=== PATIENT | male | born 1975 | race Caucasian/White ===

== ENCOUNTER 2017-03-07 21:57 | Emergency (ER) | payer OTHER ==
[~2017-03-07] VITALS: Ht 170.2 cm; Wt 74.5 kg
[2017-03-07] MEDS ORDERED: NS 1,000 ML IV SCH (22:28)
[2017-03-07] MEDS ORDERED: MORPHINE 4 MG/ML 1ML SYRINGE IV ONE (22:30)
[2017-03-07 22:46] LABS: BASO # 0.1 K/mm3 (0.0-0.2); BASO % 0.8 % (0.0-1.0); EOS # 0.3 K/mm3 (0.0-0.50); LARGE UNSTAINED CELL # 0.3 K/mm3 (0.0-0.4); LARGE UNSTAINED CELL % 2.1 % (0.0-4.0); LYMPH # 3.9 K/mm3 (1.5-4.5); LYMPH % 29.7 % (24.0-44.0); MEAN CORPUSCULAR HEMOGLOBIN 34.1 pg (27.0-33.0); MEAN CORPUSCULAR HGB CONC 35.3 g/dl (32.0-36.5); MEAN CORPUSCULAR VOLUME 96.7 fl (80.0-96.0); MONO # 0.9 K/mm3 (0.0-0.8); MONO % 6.7 % (0.0-5.0); NEUTROPHILS # 7.7 K/mm3 (1.8-7.7); NEUTROPHILS % 58.8 % (36.0-66.0); PLATELET COUNT, AUTOMATED 239 k/mm3 (150-450); RED CELL DISTRIBUTION WIDTH 12.3 % (11.5-14.5)
[2017-03-07 22:47] LABS: INR 0.85
[2017-03-07 22:56] LABS: ALBUMIN 4.1 GM/DL (3.2-5.2); ALBUMIN/GLOBULIN RATIO 1.21 (1.00-1.93); ALKALINE PHOSPHATASE 91 U/L (45-117); ALT/SGPT 52 U/L (12-78); ANION GAP 9 MEQ/L (8-16); AST/SGOT 52 U/L (15-37); BILIRUBIN,DIRECT 0.2 MG/DL (0.0-0.2); BILIRUBIN,TOTAL 0.7 MG/DL (0.2-1.0); BLOOD UREA NITROGEN 9 MG/DL (7-18); CALCIUM LEVEL 8.6 MG/DL (8.5-10.1); CARBON DIOXIDE LEVEL 27 MEQ/L (21-32); CHLORIDE LEVEL 107 MEQ/L (98-107); CREATININE FOR GFR 1.28 MG/DL (0.70-1.30); GLOMERULAR FILTRATION RATE > 60.0 (>60); GLUCOSE, FASTING 80 MG/DL (70-105); POTASSIUM SERUM 3.7 MEQ/L (3.5-5.1); SODIUM LEVEL 143 MEQ/L (136-145); TOTAL PROTEIN 7.5 GM/DL (6.4-8.2)
[2017-03-07] MEDS ORDERED: ISOVUE-370 76% 100ML VIAL (Q9967) As Ordered ONE (22:58)
--- NOTE | 2017-03-07 23:40 | REPUSA ---
CT of the chest Clinical statement: trauma. Technique: Multiple axial CT images were obtained from the thoracic inlet through the upper abdomen a fter a bolus administration of nonionic intravenous contrast. Coronal and sagittal reconstructions we re also obtained. No comparison is available. Findings: The pulmonary arteries are well-opacified with contrast, with no intraluminal filling defec ts to suggest embolism. The thoracic aorta is unremarkable. Thyroid gland is within normal limits. Th ere is no thoracic lymphadenopathy. There are no pericardial or pleural effusions. The lungs are james r. There is a benign calcified granuloma in the posterior left lower lobe. Limited imaging of the upp er abdomen is unremarkable. There are no suspicious osseous lesions. Impression: Unremarkable CT examination of the chest. No evidence of pulmonary embolism.
--- NOTE | 2017-03-07 23:40 | REPUSA ---
CT of the head Clinical history: trauma. Comparison: 05/02/2012. Technique: Multiple axial CT images were obtained through the head without administration of contrast . Findings: The ventricles and sulci are symmetric bilaterally. There is no evidence of acute hemorrhag e or infarct. There is no midline shift, mass effect, or extra-axial fluid collection. The osseous st ructures are unremarkable. The visualized paranasal sinuses and mastoid air cells are clear. Impression: Negative study.
--- NOTE | 2017-03-07 23:50 | REPUSA ---
CT of the abdomen and pelvis with contrast Clinical statement: trauma. Technique: Multiple axial CT images were obtained from the base of the lungs through the floor of the pelvis utilizing 5 mm axial slices after administration of nonionic intravenous contrast. Coronal an d sagittal reconstructions were also obtained. No comparison is available. Findings: Chest: The visualized lung bases are clear. Abdomen: The spleen, pancreas, kidneys, gallbladder, and adrenal glands are unremarkable. There is di ffuse low attenuation of the hepatic parenchyma. The hepatic and portal veins are patent. The aorta i s within normal limits. There is no evidence of abdominal lymphadenopathy or ascites. Pelvis: The bowel is unremarkable, with no obstructive or inflammatory changes. The urinary bladder i s distended, but otherwise within normal limits. The other pelvic structures appear grossly intact. T here is no evidence of pelvic lymphadenopathy or ascites. Bones: There are no suspicious osseous abnormalities seen. Impression: Unremarkable CT examination of the abdomen and pelvis. No acute traumatic injury apprecia jose. Fatty infiltration of the liver.
--- NOTE | 2017-03-07 23:50 | REPUSA ---
CT of the cervical spine Clinical history: Pain. Trauma. Technique: Multiple axial CT images were obtained through the cervical spine without administration o f contrast. Coronal and sagittal 3-D reconstructed images were also obtained. Comparison: None. Findings: The cervical vertebral bodies are in satisfactory positioning and alignment. No fractures or dislocat ions are demonstrated. The odontoid process is intact. Intervertebral disc spaces are well-maintained . There is no evidence of facet subluxation. The neural foramen appear grossly patent. The cervical c ranial junction is intact. The cervical spinal canal demonstrates normal caliber and contour without evidence of spinal stenosis. The surrounding soft tissues are within normal limits. Impression: Unremarkable CT examination of the cervical spine.
--- NOTE | 2017-03-08 01:02 | REP ---
Clinical: Trauma. Technique: AP and lateral views of the left forearm. Findings: No acute fracture or dislocation. Skeletal structures, joint spaces, and surrounding soft tissues are normal. No subcutaneous emphysema or radiodense foreign body. Impression: No acute fracture or dislocation. Signed by Jong Jauregui MD 03/08/2017 12:53 A
--- NOTE | 2017-03-08 01:02 | REP ---
Clinical: Trauma. Technique: AP and lateral views of the left humerus. Findings: Acute fracture dislocation. Skeletal structures, joint spaces, and surrounding soft tissues are normal. No subcutaneous emphysema or radiodense foreign body. Impression: No acute fracture or dislocation. Signed by Jong Jauregui MD 03/08/2017 12:54 A
[2017-03-08 02:15] VITALS: BP 121/62
--- NOTE | 2017-03-08 08:04 | ECGEPIP ---
Stationary ECG Study 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
== END 2017-03-08 02:44 | disposition left against medical advice (07) ==
LOC: M ED 21:57
DX: F10.129 Alcohol abuse with intoxication, unspecified (principal); Z72.0 Tobacco use; W13.2XXA Fall from, out of or through roof, initial encounter; Y92.099 Unspecified place in other non-institutional residence as the place of occurrence of the external cause; Y93.89 Activity, other specified; Y99.9 Unspecified external cause status
CPT/HCPCS: 70450; 71260; 72125; 73060; 73090; 74177; 80048; 80076; 80320; 82550; 82553; 85025; 85610; 85730; 93000; 93041; 94760; 96374; 99285; Q9967

== ENCOUNTER 2017-05-16 19:58 | Emergency (ER) | payer OTHER ==
[~2017-05-16] VITALS: Ht 167.6 cm; Wt 74.1 kg
[2017-05-16] MEDS ORDERED: ISOVUE-370 76% 100ML VIAL (Q9967) As Ordered ONE (23:44)
[2017-05-16] MEDS ORDERED: methylPREDNISolone INJ 125 MG/2 ML VIAL (J2930) IV ONE (23:45)
[2017-05-16] MEDS ORDERED: IPRATROPIUM 0.5MG/ALBUTEROL 2.5MG INH SOL UD 3ML (DUONEB)(J7620) NEB ONE (23:45)
[2017-05-17 00:51] LABS: BASO # 0.1 10^3/uL (0.0-0.2); BASO % 1.1 % (0.0-1.0); EOS # 0.2 10^3/uL (0.0-0.50); EOS % 2.3 % (0.0-3.0); IMMATURE GRANULOCYTE % 0.3 % (0-0); LYMPH # 3.5 10^3/uL (1.5-4.5); LYMPH % 37.2 % (24.0-44.0); MEAN CORPUSCULAR HEMOGLOBIN 33.5 pg (27.0-33.0); MEAN CORPUSCULAR HGB CONC 34.9 g/dl (32.0-36.5); MEAN CORPUSCULAR VOLUME 95.9 fl (80.0-96.0); MONO # 0.9 10^3/uL (0.0-0.8); MONO % 9.5 % (0.0-5.0); NEUTROPHILS # 4.7 10^3/uL (1.8-7.7); NEUTROPHILS % 49.6 % (36.0-66.0); PLATELET COUNT, AUTOMATED 227 10^3/uL (150-450); RED CELL DISTRIBUTION WIDTH 12.4 % (11.5-14.5); WHITE BLOOD COUNT 9.5 10^3/uL (4.0-10.0)
[2017-05-17 01:16] LABS: ALBUMIN 3.7 GM/DL (3.2-5.2); ALBUMIN/GLOBULIN RATIO 1.16 (1.00-1.93); ALKALINE PHOSPHATASE 88 U/L (45-117); ALT/SGPT 74 U/L (12-78); ANION GAP 12 MEQ/L (8-16); AST/SGOT 52 U/L (7-37); BILIRUBIN,DIRECT 0.1 MG/DL (0.0-0.2); BILIRUBIN,TOTAL 0.5 MG/DL (0.2-1.0); BLOOD UREA NITROGEN 15 MG/DL (7-18); CALCIUM LEVEL 8.2 MG/DL (8.5-10.1); CARBON DIOXIDE LEVEL 21 MEQ/L (21-32); CHLORIDE LEVEL 106 MEQ/L (98-107); CREATININE FOR GFR 1.21 MG/DL (0.70-1.30); GLOMERULAR FILTRATION RATE > 60.0 (>60); GLUCOSE, FASTING 84 MG/DL (70-105); POTASSIUM SERUM 3.8 MEQ/L (3.5-5.1); SODIUM LEVEL 139 MEQ/L (136-145); TOTAL PROTEIN 6.9 GM/DL (6.4-8.2)
--- NOTE | 2017-05-17 02:50 | REPUSA ---
CLINICAL HISTORY: Abdominal pain. TECHNIQUE: Multiple axial and coronal CT images were obtained through the abdomen and pelvis after ad ministration of oral and intravenous contrast material. COMMENTS: Comparison to prior exam on 03/07/2017. Interval appearance of diffuse thickening of the wall of the bladder. Diffusely thickened colon. Fluid filled small bowels. The liver is of uniform attenuation without mass or defect. There is no intra or extrahepatic biliary ductal dilatation. The spleen is normal. The gallbladder is within normal limits. The pancreas is of normal contour and attenuation characteristics. There is no evidence of adrenal mass. Both kidneys demonstrate prompt and equal nephrograms. The kidneys are normal in size, shape and conf iguration. There is no evidence of renal or ureteral mass. No renal or ureteral calculi are identifie d. There is no hydroureter or hydronephrosis. No evidence for appendicitis. There is no bowel wall thickening. No evidence for small or large bowel obstruction. There is no evidence of abdominal ascites or lymphadenopathy. There is no evidence of intrinsic or extrinsic bladder mass. There is no pelvic ascites or lymphadeno jannie. Images of the lung bases show no evidence of pleural or parenchymal mass. There are no pleural effusi ons. The bony structures are free of lytic or blastic lesions. IMPRESSION: Diffusely thickened bladder suggestive of cystitis. Mild enterocolitis. Not present on prior exam. Thank you for your kind referral of this patient.
[2017-05-17] MEDS ORDERED: PRED20TA PO (03:02)
[2017-05-17] MEDS ORDERED: ALBUTEROL 90 MCG/ACT 8GM HFA INHALER INH ONE (03:15)
[2017-05-17 03:16] VITALS: BP 138/76
--- NOTE | 2017-05-17 07:57 | REP ---
Clinical: Cough and dyspnea . Comparison: 10/29/2015 . Technique: PA and lateral. Findings: The mediastinum and cardiac silhouette are normal. The lung chen are clear and without acute consolidation, effusion, or pneumothorax. Stable benign calcified granuloma in the periphery of the left lung zone with associated calcified lymph nodes. The skeletal structures are intact and normal. Impression: 1. No acute cardiopulmonary process. 2. Prior granulomas disease. Signed by Jong Jauregui MD 05/17/2017 07:49 A
--- NOTE | 2017-05-17 09:18 | ECGEPIP ---
Stationary ECG Study 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
== END 2017-05-17 03:43 | disposition home or self-care (01) ==
LOC: M ED 19:58
DX: J45.901 Unspecified asthma with (acute) exacerbation (principal); R10.9 Unspecified abdominal pain; F17.200 Nicotine dependence, unspecified, uncomplicated; Z88.0 Allergy status to penicillin
CPT/HCPCS: 71020; 74177; 80048; 80076; 83605; 83880; 85025; 87804; 93000; 93041; 94640; 94760; 96374; 99285; J2930; Q9967

== ENCOUNTER → 2017-05-21 | Outpatient (REF) | payer OTHER ==
[~2017-05-21] MED LIST: PRED20TA PO
== END ==
LOC: M SFHCPLAZ 11:21
PROVIDERS: ATTEND Family Medicine
DX: Z87.09 Personal history of other diseases of the respiratory system (principal); R10.13 Epigastric pain

== ENCOUNTER → 2017-05-21 | Outpatient (REF) | payer OTHER | LOC: M SFHCPLAZ 13:34 | PROVIDERS: ATTEND Student in an Organized Health Care Education/Training Program | DX: R10.13 Epigastric pain (principal) ==

== ENCOUNTER 2017-07-12 13:31 | Outpatient (CLI) | payer OTHER ==
[2017-07-12] MEDS ORDERED: METHACHOLINE KIT (J7674) INH (14:00)
[2017-07-22] MEDS ORDERED: METHACHOLINE KIT (J7674) INH (07:00)
[2017-08-19] MEDS ORDERED: METHACHOLINE KIT (J7674) INH (10:00)
== END 2017-08-19 ==
LOC: M CARPUL 08-19 09:34
DX: J45.50 Severe persistent asthma, uncomplicated (principal)
CPT/HCPCS: J7674

== ENCOUNTER 2017-07-22 07:49 | Outpatient (CLI) | payer OTHER | END 2017-08-19 | LOC: M SLEEP 07:49 | DX: I10 Essential (primary) hypertension (principal); E66.3 Overweight; R56.9 Unspecified convulsions | CPT/HCPCS: 88108 ==

== ENCOUNTER → 2017-07-22 | Outpatient (CLI) | payer OTHER | LOC: M RAD 11:22 | DX: M54.5 Low back pain (principal); R05 Cough | CPT/HCPCS: 71046 ==

== ENCOUNTER → 2017-08-09 | Outpatient (REF) | payer OTHER | LOC: M LAB REF 09:26 | DX: J11.1 Influenza due to unidentified influenza virus with other respiratory manifestations (principal) | CPT/HCPCS: 87633 ==

== ENCOUNTER → 2017-08-11 | Outpatient (CLI) | payer OTHER ==
[2017-08-11 12:09] LABS: BASO % 0.6 % (0.0-1.0); EOS # 0.1 10^3/uL (0.0-0.50); EOS % 1.5 % (0.0-3.0); HEMATOCRIT 45.6 % (42.0-52.0); HEMOGLOBIN 15.8 g/dl (14.0-18.0); IMMATURE GRANULOCYTE % 0.3 % (0-3.0); LYMPH # 1.7 10^3/uL (1.5-4.5); LYMPH % 23.5 % (24.0-44.0); MEAN CORPUSCULAR HEMOGLOBIN 33.3 pg (27.0-33.0); MEAN CORPUSCULAR HGB CONC 34.6 g/dl (32.0-36.5); MEAN CORPUSCULAR VOLUME 96.2 fl (80.0-96.0); MONO # 0.7 10^3/uL (0.0-0.8); MONO % 10.3 % (0.0-5.0); NEUTROPHILS # 4.6 10^3/uL (1.8-7.7); NEUTROPHILS % 63.8 % (36.0-66.0); PLATELET COUNT, AUTOMATED 181 10^3/uL (150-450); RED BLOOD COUNT 4.74 10^6/uL (4.30-6.10); RED CELL DISTRIBUTION WIDTH 12.4 % (11.5-14.5); WHITE BLOOD COUNT 7.2 10^3/uL (4.0-10.0)
[2017-08-11 12:32] LABS: ANION GAP 6 MEQ/L (8-16); BLOOD UREA NITROGEN 9 MG/DL (7-18); CALCIUM LEVEL 9.1 MG/DL (8.5-10.1); CARBON DIOXIDE LEVEL 30 MEQ/L (21-32); CHLORIDE LEVEL 103 MEQ/L (98-107); CREATININE FOR GFR 1.04 MG/DL (0.70-1.30); GLOMERULAR FILTRATION RATE > 60.0 (>60); GLUCOSE, FASTING 95 MG/DL (70-100); LIPASE 132 U/L (73-393); POTASSIUM SERUM 4.2 MEQ/L (3.5-5.1); SODIUM LEVEL 139 MEQ/L (136-145)
== END ==
LOC: M LAB 11:07
DX: R06.02 Shortness of breath (principal); J06.9 Acute upper respiratory infection, unspecified; K52.9 Noninfective gastroenteritis and colitis, unspecified; R10.13 Epigastric pain; J98.4 Other disorders of lung
CPT/HCPCS: 71046

== ENCOUNTER 2018-08-13 00:53 | Emergency (ER) | payer OTHER ==
[~2018-08-13] VITALS: Ht 170.2 cm; Wt 75.0 kg
[2018-08-13 00:53] VITALS: BP 135/93
--- NOTE | 2018-08-13 08:01 | REP ---
Right shoulder single AP view : There is no fracture or dislocation. Mineralization and joint spaces are normal. There are no calcifications or foreign bodies. Impression: Negative right shoulder single view . Electronically Signed by Aneesh Wood MD 08/13/2018 07:53 A
--- NOTE | 2018-08-13 08:02 | REP ---
Right wrist four views : There is no fracture or dislocation. Mineralization and joint spaces are normal. There are no calcifications or foreign bodies. Impression: Negative right wrist . Electronically Signed by Aneesh Wood MD 08/13/2018 07:55 A
--- NOTE | 2018-08-13 08:02 | REP ---
Right forearm two views : There is no fracture or dislocation. Mineralization and joint spaces are normal. There are no calcifications or foreign bodies. Impression: Negative right forearm . Electronically Signed by Aneesh Wood MD 08/13/2018 07:54 A
--- NOTE | 2018-08-13 08:02 | REP ---
Right humerus two views : There is no fracture or dislocation. Mineralization and joint spaces are normal. There are no calcifications or foreign bodies. Impression: Negative right humerus . Electronically Signed by Aneesh Wood MD 08/13/2018 07:54 A
== END 2018-08-13 02:14 | disposition home or self-care (01) ==
LOC: M ED 00:53
DX: F10.129 Alcohol abuse with intoxication, unspecified (principal); S43.51XA Sprain of right acromioclavicular joint, initial encounter; W23.0XXA Caught, crushed, jammed, or pinched between moving objects, initial encounter; Y92.9 Unspecified place or not applicable; Y93.9 Activity, unspecified; Y99.9 Unspecified external cause status; Z88.0 Allergy status to penicillin

== ENCOUNTER 2018-09-16 18:01 | Emergency (ER) | payer OTHER ==
[~2018-09-16] VITALS: Ht 170.2 cm; Wt 71.4 kg
[2018-09-16] MEDS ORDERED: NS 1,000 ML IV ONE (18:30)
[2018-09-16 18:54] LABS: BASO # 0.1 10^3/uL (0.0-0.2); EOS # 0.2 10^3/uL (0.0-0.50); EOS % 1.8 % (0.0-3.0); HEMATOCRIT 46.6 % (42.0-52.0); HEMOGLOBIN 16.1 g/dl (13.5-17.5); LYMPH # 4.1 10^3/uL (1.5-4.5); MEAN CORPUSCULAR HEMOGLOBIN 34.2 pg (27.0-33.0); MEAN CORPUSCULAR HGB CONC 34.5 g/dl (32.0-36.5); MEAN CORPUSCULAR VOLUME 98.9 fl (80.0-96.0); MONO # 0.6 10^3/uL (0.0-0.8); MONO % 6.6 % (0.0-5.0); NEUTROPHILS # 4.1 10^3/uL (1.8-7.7); NEUTROPHILS % 45.3 % (36.0-66.0); PLATELET COUNT, AUTOMATED 198 10^3/uL (150-450); RED BLOOD COUNT 4.71 10^6/uL (4.30-6.10); WHITE BLOOD COUNT 9.1 10^3/uL (4.0-10.0)
[2018-09-16] MEDS ORDERED: diphenhydrAMINE INJ 50MG/ML VIAL (J1200) IM ONE (19:00)
[2018-09-16] MEDS ORDERED: HALOPERIDOL 5 MG/ML VIAL (J1630) IM ONE (19:00)
[2018-09-16] MEDS ORDERED: LORazepam 2 MG/ML VIAL (J2060) IM ONE (19:00)
[2018-09-16 19:09] LABS: ACETAMINOPHEN LEVEL < 2.0 UG/ML (10.0-30.0); ALBUMIN 4.1 GM/DL (3.2-5.2); ALT/SGPT 84 U/L (12-78); BILIRUBIN,DIRECT 0.1 MG/DL (0.0-0.2); BILIRUBIN,TOTAL 0.3 MG/DL (0.2-1.0); BLOOD UREA NITROGEN 9 MG/DL (7-18); CALCIUM LEVEL 8.4 MG/DL (8.5-10.1); CARBON DIOXIDE LEVEL 23 MEQ/L (21-32); CHLORIDE LEVEL 108 MEQ/L (98-107); CPK CREATINE PHOSPHOKINASE 115 U/L (39-308); CREATININE FOR GFR 1.08 MG/DL (0.70-1.30); ETHYL ALCOHOL (ETHANOL) 0.318 % (0.000-0.010); GLOMERULAR FILTRATION RATE > 60.0 (>60); GLUCOSE, FASTING 87 MG/DL (70-100); LIPASE 308 U/L (73-393); POTASSIUM SERUM 4.1 MEQ/L (3.5-5.1); SALICYLATE LEVEL 5.2 MG/DL (5.0-30.0); SODIUM LEVEL 143 MEQ/L (136-145); TOTAL PROTEIN 7.5 GM/DL (6.4-8.2)
[2018-09-16 21:27] LABS: AMPHETAMINES LEVEL URINE NEGATIVE (NEGATIVE); BARBITURATES URINE NEGATIVE (NEGATIVE); BENZODIAZEPINES URINE NEGATIVE (NEGATIVE); CANNABINOIDS URINE NEGATIVE (NEGATIVE); COCAINE METABOLITE URINE NEGATIVE (NEGATIVE); METHADONE URINE NEGATIVE (NEGATIVE); OPIATES URINE NEGATIVE (NEGATIVE); PHENCYCLIDINE URINE NEGATIVE (NEGATIVE)
[2018-09-17 01:26] VITALS: BP 129/73
--- NOTE | 2018-09-17 09:29 | ECGEPIP ---
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
== END 2018-09-17 01:29 | disposition home or self-care (01) ==
LOC: M ED 18:01
DX: F10.129 Alcohol abuse with intoxication, unspecified (principal); I45.19 Other right bundle-branch block; I51.9 Heart disease, unspecified; F12.10 Cannabis abuse, uncomplicated; Z72.0 Tobacco use; Z88.0 Allergy status to penicillin
CPT/HCPCS: 80048; 80076; 80307; 82550; 83605; 83690; 84443; 85025; 93005; 93041; 94760; 96372; 99285; G0480; J1200; J1630; J2060

== ENCOUNTER 2018-10-12 09:50 | Inpatient (IN) | payer OTHER ==
[~2018-10-12] VITALS: Ht 170.2 cm; Wt 69.5 kg
[2018-10-12] MEDS ORDERED: INCR1INH INH (09:57)
[2018-10-12] MEDS ORDERED: VITA500045 PO (09:57)
[2018-10-12] MEDS ORDERED: VENTAER INH (09:57)
[2018-10-12] MEDS ORDERED: MONT10TA2 (09:57)
[2018-10-12] MEDS ORDERED: ALBU8.5H (09:57)
[2018-10-12] MEDS ORDERED: BREO1INH3 INH (09:57)
[2018-10-12] MEDS ORDERED: CEFD1CAP8 PO (09:57)
[2018-10-12] MEDS ORDERED: KETOROLAC 30 MG/ML VIAL (J1885) IV ONE (10:30)
[2018-10-12] MEDS ORDERED: NS 1,000 ML IV ONE ×2 (10:30→13:45)
[2018-10-12] MEDS ORDERED: LORazepam 2 MG/ML VIAL (J2060) IV STA (10:33)
[2018-10-12 11:02] LABS: BASO % 0.3 % (0.0-1.0); EOS % 0.1 % (0.0-3.0); HEMATOCRIT 43.6 % (42.0-52.0); HEMOGLOBIN 14.9 g/dl (13.5-17.5); LYMPH # 1.1 10^3/uL (1.5-4.5); LYMPH % 7.7 % (24.0-44.0); MEAN CORPUSCULAR HEMOGLOBIN 33.6 pg (27.0-33.0); MEAN CORPUSCULAR HGB CONC 34.2 g/dl (32.0-36.5); MEAN CORPUSCULAR VOLUME 98.4 fl (80.0-96.0); MONO # 0.7 10^3/uL (0.0-0.8); MONO % 4.6 % (0.0-5.0); NEUTROPHILS # 12.3 10^3/uL (1.8-7.7); NEUTROPHILS % 86.6 % (36.0-66.0); PLATELET COUNT, AUTOMATED 182 10^3/uL (150-450); RED BLOOD COUNT 4.43 10^6/uL (4.30-6.10); WHITE BLOOD COUNT 14.2 10^3/uL (4.0-10.0)
[2018-10-12 11:25] LABS: ALBUMIN 3.9 GM/DL (3.2-5.2); ALT/SGPT 76 U/L (12-78); BILIRUBIN,DIRECT 0.4 MG/DL (0.0-0.2); BILIRUBIN,TOTAL 1.4 MG/DL (0.2-1.0); BLOOD UREA NITROGEN 12 MG/DL (7-18); C REACTIVE PROTEIN QUANTITATIV 3.56 MG/DL (0.00-0.30); CALCIUM LEVEL 8.8 MG/DL (8.5-10.1); CARBON DIOXIDE LEVEL 30 MEQ/L (21-32); CHLORIDE LEVEL 97 MEQ/L (98-107); CK-MB VALUE MASS < 1.0 NG/ML (<3.6); CPK CREATINE PHOSPHOKINASE 66 U/L (39-308); CREATININE FOR GFR 1.13 MG/DL (0.70-1.30); ERYTHROCYTE SEDIMENTATION RATE 3 mm/hr (0-15); ETHYL ALCOHOL (ETHANOL) < 0.003 % (0.000-0.010); GLOMERULAR FILTRATION RATE > 60.0 (>60); GLUCOSE, FASTING 109 MG/DL (70-100); MB/CK RELATIVE INDEX 1.52 (< OR =4); POTASSIUM SERUM 3.8 MEQ/L (3.5-5.1); SODIUM LEVEL 132 MEQ/L (136-145); TROPONIN I < 0.02 NG/ML (< 0.10)
[2018-10-12 11:27] LABS: INFLUENZA A AMPLIFICATION NEGATIVE (NEGATIVE); INFLUENZA B AMPLIFICATION NEGATIVE (NEGATIVE)
[2018-10-12] MEDS ORDERED: MORPHINE 4 MG/ML 1ML VIAL/SYRINGE (J2270) IV ONE ×2 (12:15→13:45)
--- NOTE | 2018-10-12 13:18 | REP ---
Chest x-ray: Two views. History: Chest pain. Comparison study: August 11, 2017. Findings: The lungs are well inflated and free of infiltrate. Pleural angles are sharp. Heart size is normal. There is a granulomatous calcification in the left lower lobe unchanged. Cardiomediastinal silhouette is unremarkable. Pulmonary vasculature is not increased. Impression: Granulomatous calcification on the left. Otherwise no acute disease. Electronically Signed by Onur Whitt MD 10/12/2018 04:00 P
[2018-10-12] MEDS ORDERED: MAG SULF 1GM/100ML (MAG RUN) 1 GM in APPROPRIATE DILUENT 1 EA IV ONE ×2 (16:15→17:00)
[2018-10-12] MEDS ORDERED: GABAPENTIN 400 MG CAP PO ONE (16:15)
[2018-10-12 16:18] LABS: MAGNESIUM LEVEL 1.2 MG/DL (1.8-2.4)
[2018-10-12] MEDS: NS 1,000 ML IV SCH (17:30)
[2018-10-12] MEDS ORDERED: ACYCLOVIR 700 MG in D5W 100 ML IV SCH (17:45)
[2018-10-12] MEDS ORDERED: ONDANSETRON 4MG/2ML VIAL (J2405) IV PRN (18:00)
[2018-10-12 18:14] LABS: APPEARANCE, CSF CLEAR (CLEAR); COLOR, CSF COLORLESS (COLORLESS); CSF TUBE# CELL CNT TUBE 1
[2018-10-12] MEDS ORDERED: VANCOMYCIN HCL 1,000 MG, VIAL MATE ADAPTER 1 EACH in D5W 250 ML IV ONE (18:15)
[2018-10-12 18:16] LABS: APPEARANCE, CSF CLEAR (CLEAR); COLOR, CSF COLORLESS (COLORLESS); CSF TUBE# CELL CNT TUBE 4
[2018-10-12 18:19] LABS: CSF TUBE# GLU TUBE 2; CSF TUBE# TP TUBE 2; GLUCOSE CSF 73 MG/DL (40-75); TOTAL PROTEIN,CSF 49 MG/DL (15-45)
[2018-10-12 18:57] LABS: FOLATE 3.7 NG/ML (>5.4)
[2018-10-12] MEDS ORDERED: MULTIVITAMIN -ADULT INJECTION 10 ML, THIAMINE INJection 100 MG, FOLIC ACID 1 MG in NS 1... IV ONE (19:00)
--- NOTE | 2018-10-12 19:32 | HPE ---
DATE OF ADMISSION: 10/12/2018 PRIMARY CARE PROVIDER: [facility] HISTORY OF PRESENT ILLNESS: The patient is a 43-year-old male with a past medical history significant for asthma, gastroesophageal reflux disease (GERD), alcohol abuse, presented to [facility] on October 12, 2018 with a complaint of persistent lower extremity pain and left upper extremity shoulder pain with persistent fevers. The patient stated symptoms started yesterday night and the pain started all of sudden and woke him up from the sleep. Since yesterday night, the pain was mainly at the bilateral lower extremity from the lower back and the sharp pain radiated to the bilateral lower extremities. The pain also started on the left shoulder and bilateral upper extremities. The patient feels any type of movement of pressure will exacerbate the pain. The patient also noted to have significant neck stiffness. The patient has been have been having persistent fever with chills since yesterday night. The patient did have a recent sick contact. Intermittent nausea. The patient initially was evaluated in the emergency room and hospitalist team called for admission. PAST MEDICAL HISTORY: 1. Asthma. 2. Gastroesophageal reflux disease (GERD). PAST SURGICAL HISTORY: 1. Bilateral knee surgery for defect. 2. Abdominal hernia repair. 3. Right skull repair. SOCIAL HISTORY: The patient smokes one pack daily since 15 years old. The patient drinks 6 to 12 beers on average on a daily basis for the past 25 years. Last drink was last night. Denies any recreational drug use. REVIEW OF SYSTEMS: GENERAL: Positive fever and chills since yesterday night. HEENT: No vision changes. No auditory changes. CARDIOVASCULAR: No chest pain. No palpitations. RESPIRATORY: No shortness of breath. No cough. No sputum production. GASTROINTESTINAL (GI): Intermittent nausea and vomiting. No stomach pain. No diarrhea. MUSCULOSKELETAL: The patient complained of persistent sharp pain that radiates from the lower back to the bilateral lower extremities and there is also sharp pain of the left shoulder and bilateral upper extremities. The pain usually exacerbates with direct pressure or any type of body movements. The patient also complained about neck stiffness. NEUROLOGICAL: Bilateral finger numbness, tingling. OBJECTIVE: VITAL SIGNS: Temperature is 100.7, pulse is 113, respirations 20, blood pressure is 126/71, pulse oximetry 96% on room air. GENERAL: Moderate to severe distress secondary to persistent pain. The patient is alert and awake. HEENT: Normocephalic, atraumatic. Positive neck stiffness. Post surgical scar near the right skull. CARDIOVASCULAR: Tachycardia. Positive S1, S2. LUNGS: Clear to auscultation bilaterally. ABDOMEN: Soft, nontender. Bowel sounds present. EXTREMITIES: No significant edema appreciated. NEUROLOGICAL: The patient has tenderness to direct pressure of the bilateral lower extremities from the lower back to the bilateral extremities, the left upper extremity and the left shoulder and part of the right upper extremity tender to palpation. Possible nuchal rigidity. Muscle strength 5/5. LABORATORY DATA: White blood count (WBC) 14.2, hemoglobin 14.9, hematocrit is 43.6, platelet count is 182. Sodium is 132, potassium 3.8, chloride 97, carbon dioxide 30, BUN 12, creatinine 1.13, glomerular filtration rate (GFR) greater than 60, fasting glucose 109, calcium 1.2, magnesium 1.2, total bilirubin 1.4, direct bilirubin is 0.4. AST 78, ALT 76, alkaline phosphatase 107, total CK is 66. Troponin I is less than 0.02. C-reactive protein is 3.56. Total protein is 7, albumin 3.9. Blood alcohol level is normal. Urinalysis normal. Influenza normal. CT of the chest showed granulomatous calcification on the left. Otherwise, no acute disease. ASSESSMENT AND PLAN: 1. Sepsis. The patient was admitted under the inpatient status in the PCU. The patient presented with a temperature of 100.7 with tachycardia with tachypnea. The patient also had elevated white count with intermittent lethargy. Will follow with blood cultures. Urine culture was negative. Chest x-ray negative. During physical examination, the patient was found to have nuchal rigidity. Will order the cerebral spinal fluid (CSF) analysis. The patient will have a CT scan of head. The patient will have a lumbar puncture. Will follow with fluid analysis. Empirically, the patient was started on broad-spectrum antibiotics and antiviral treatments. 2. Alcohol abuse. At baseline, the patient drinks 6 to 12 pack on a daily basis for 25 years. His last drink was last night. The patient will be on Clinical [place] Withdrawal Assessment (CIWA) protocol. The patient will receive banana bag as infusion. 3. Asthma. No signs of exacerbation at this moment. Continue to monitor. 4. Gastroesophageal reflux disease. Continue to monitor. 5. Deep vein thrombosis (DVT) prophylaxis. The patient will be on VALDEMAR compression.
--- NOTE | 2018-10-12 20:50 | REPVR ---
EXAM: CT Head Without Contrast EXAM DATE/TIME: 10/12/2018 8:30 PM CLINICAL HISTORY: 43 years old, male; Pain; Headache; Additional info: Rule out meningitis TECHNIQUE: Imaging protocol: Axial computed tomography images of the head/brain without contrast. Radiation optimization: All CT scans at this facility use at least one of these dose optimization techniques: automated exposure control; mA and/or kV adjustment per patient size (includes targeted exams where dose is matched to clinical indication); or iterative reconstruction. COMPARISON: CT Head without contrast 03/07/2017 10:58 PM FINDINGS: Brain: This is a low attenuation focus in the left temporal lobe (series 201 image 7). Correlation with postcontrast CT or MRI suggested to exclude findings related to meningitis. Otherwise unremarkable. Ventricles: Normal. No ventriculomegaly. Bones/joints: Unremarkable. No acute fracture. Sinuses: Visualized sinuses are unremarkable. No acute sinusitis. Mastoid air cells: Visualized mastoid air cells are unremarkable. No mastoid effusion. Soft tissues: Unremarkable. IMPRESSION: This is a low attenuation focus in the left temporal lobe (series 201 image 7). Correlation with postcontrast CT or MRI suggested to exclude findings related to meningitis. Electronically signed by: Kris Rendon On 10/12/2018 20:50:11 PM
--- NOTE | 2018-10-12 20:52 | REPVR ---
EXAM: CT Lumbar Spine Without Contrast EXAM DATE/TIME: 10/12/2018 8:29 PM CLINICAL HISTORY: 43 years old, male; Low back pain; Additional info: Rule out meningitis TECHNIQUE: Imaging protocol: Axial computed tomography images of the lumbar spine without intravenous contrast. Coronal and sagittal reformatted images were created and reviewed. Radiation optimization: All CT scans at this facility use at least one of these dose optimization techniques: automated exposure control; mA and/or kV adjustment per patient size (includes targeted exams where dose is matched to clinical indication); or iterative reconstruction. COMPARISON: CR Spine. Lumbosacral, complete 05/02/2012 3:21 PM FINDINGS: Vertebrae: No acute fracture. Normal alignment. Discs/Spinal canal/Neural foramina: Minimal bulging L3-4, L4-5 and L5-S1 without neural compromise. Soft tissues: Unremarkable. Pleural space: Pleural thickening both lung bases. IMPRESSION: Mild bulging annuli from L3-4 through L5-S1 without neural compromise. He is a Electronically signed by: Kris Rendon On 10/12/2018 20:52:17 PM
--- NOTE | 2018-10-12 21:21 | PHACANCOPD ---
PHARMACY VANCOMYCIN DOSING Pt Demographics Demographics Patient Age:43 , Weight:69.550 , Gender: male Adjusted Body Weight Date: 10/12/18, Adjusted Body Weight: Kg Events Past 24 Hours Events Past 24 Hours: NO: Dialysis, Diuretic Therapy, Change in CrCl, Fever, Elevation in WBC, Pending Diagnostics, Pending Procedures, Other Vancomycin Vancomycin Target Ranges: 15-20 mcg/ml Vancomycin Load Y/N: Yes Load Dose Date Time Vancomycin Load Dose: 2000MG Date: 10-12 Time: 2200 Vancomycin Dose Date: 10/12/18. Current Vancomycin Dose: [1000mg q8h] Intermittent Dosing?: No Labs Labs Item Value Date Time White Blood Count 14.2 10^3/uL H 10/12/18 1042 Blood Urea Nitrogen 12 MG/DL 10/12/18 1042 Creatinine 1.13 MG/DL 10/12/18 1042 Glomerular Filtration Rate > 60.0 10/12/18 1042 Vital Signs Label Value Date Time Patient Temperature 100.7 degrees F 10/12/18 1555 Temperature Source Oral 10/12/18 1555 Micro Microbiology 10/12/18 Blood Culture, Received Pending 10/12/18 Blood Culture, Received Pending 10/12/18 Gram Stain - Preliminary, Resulted 10/12/18 CSF Culture, Resulted Pending 10/12/18 - Final, Complete Creatinine Clearance Date:10/12/18. Creatinine Clearance: [79]. Pending Labs Trough 02-25 @2100 Assessment and Plan Maintaining Current Dose?: Yes Reason for dose change: No Dose Change Pharmacist Note Pharmacist Note Date: 10/12/18. Pharmacist note:Will monitor and make adjustments as needed. ELIZABETH [facility]ELICIANO [facility] Oct 12, 2018 21:21
[2018-10-12] MEDS: MORPHINE 4 MG/ML 1ML VIAL/SYRINGE (J2270) IV PRN (21:53)
[2018-10-12] MEDS: VANCOMYCIN HCL 1,000 MG, VIAL MATE ADAPTER 1 EACH in D5W 250 ML IV SCH (22:00)
--- NOTE | 2018-10-12 22:14 | ECGEPIP ---
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
--- NOTE | 2018-10-12 22:17 | ECGEPIP ---
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
[2018-10-13] MEDS: KETOROLAC 30 MG/ML VIAL (J1885) IV PRN ×3 (00:52→20:04)
[2018-10-13] MEDS ORDERED: GABAPENTIN 400 MG CAP PO ONE (01:30)
[2018-10-13] MEDS: ACETAMINOPHEN TAB 650MG DOSE (2X325MG) PO PRN ×3 (01:46→20:05)
[2018-10-13] MEDS: IPRATROPIUM 0.5MG/ALBUTEROL 2.5MG INH SOL UD 3ML (DUONEB)(J7620) NEB PRN ×3 (01:59→21:11)
[2018-10-13] MEDS ORDERED: MEROPENEM INJ 2 GM in NS 100 ML IV SCH (02:00)
[2018-10-13] MEDS: NS 1,000 ML IV SCH ×3 (03:25→23:30)
[2018-10-13] MEDS: MORPHINE 4 MG/ML 1ML VIAL/SYRINGE (J2270) IV PRN ×4 (04:03→21:12)
[2018-10-13 04:16] LABS: AMPHETAMINES LEVEL URINE NEGATIVE (NEGATIVE); BARBITURATES URINE NEGATIVE (NEGATIVE); BENZODIAZEPINES URINE NEGATIVE (NEGATIVE); CANNABINOIDS URINE NEGATIVE (NEGATIVE); COCAINE METABOLITE URINE NEGATIVE (NEGATIVE); METHADONE URINE NEGATIVE (NEGATIVE); OPIATES URINE POSITIVE (NEGATIVE); PHENCYCLIDINE URINE NEGATIVE (NEGATIVE)
[2018-10-13 04:44] LABS: HEMATOCRIT 40.5 % (42.0-52.0); HEMOGLOBIN 13.9 g/dl (13.5-17.5); MEAN CORPUSCULAR HEMOGLOBIN 34.1 pg (27.0-33.0); MEAN CORPUSCULAR HGB CONC 34.3 g/dl (32.0-36.5); MEAN CORPUSCULAR VOLUME 99.3 fl (80.0-96.0); PLATELET COUNT, AUTOMATED 137 10^3/uL (150-450); RED BLOOD COUNT 4.08 10^6/uL (4.30-6.10); WHITE BLOOD COUNT 8.6 10^3/uL (4.0-10.0)
[2018-10-13 05:21] LABS: ALT/SGPT 54 U/L (12-78); BILIRUBIN,TOTAL 1.2 MG/DL (0.2-1.0); BLOOD UREA NITROGEN 12 MG/DL (7-18); CALCIUM LEVEL 7.8 MG/DL (8.5-10.1); CARBON DIOXIDE LEVEL 23 MEQ/L (21-32); CHLORIDE LEVEL 105 MEQ/L (98-107); CREATININE FOR GFR 1.04 MG/DL (0.70-1.30); GLOMERULAR FILTRATION RATE > 60.0 (>60); GLUCOSE, FASTING 116 MG/DL (70-100); POTASSIUM SERUM 3.7 MEQ/L (3.5-5.1); SODIUM LEVEL 135 MEQ/L (136-145); TOTAL PROTEIN 5.8 GM/DL (6.4-8.2)
[2018-10-13] MEDS: VANCOMYCIN HCL 1,000 MG, VIAL MATE ADAPTER 1 EACH in D5W 250 ML IV SCH (05:37)
[2018-10-13] MEDS ORDERED: traMADol 50 MG TAB PO ONE (06:30)
[2018-10-13] MEDS: THIAMINE 100 MG TAB PO SCH (08:16)
[2018-10-13] MEDS: ACYCLOVIR 700 MG in D5W 100 ML IV SCH ×4 (08:16→15:57)
[2018-10-13] MEDS: MULTIVITAMINS/MINERALS THERAP 1 TAB PO SCH (08:16)
[2018-10-13] MEDS: FOLIC ACID 1 MG TAB PO SCH (08:16)
[2018-10-13] MEDS ORDERED: MORPHINE 4 MG/ML 1ML VIAL/SYRINGE (J2270) IV ONE (08:45)
[2018-10-13 09:00] VITALS: BP 151/91
[2018-10-13] MEDS: GABAPENTIN 300 MG CAP PO SCH ×3 (10:14→21:00)
[2018-10-13 11:10] LABS: ERYTHROCYTE SEDIMENTATION RATE 7 mm/hr (0-15)
[2018-10-13 13:00] VITALS: BP 142/89
--- NOTE | 2018-10-13 14:53 | IPN ---
DATE: 10/13/2018 SUBJECTIVE: The patient is seen and examined in the room today. The patient continues to have a temperature this morning. The patient continues to have a complaint of significant pain. Pain mainly from the lower back, it is a shocking pain with radiation to the bilateral toes. The patient thinks gabapentin is helping him. IV morphine is also helping him too. He still has intermittent nausea, no vomiting. OBJECTIVE: VITAL SIGNS: Temperature 100.8, pulse 117, respiration rate is 22, blood pressure 151/76, pulse oximetry is 93% on room air. GENERAL: Mild distress secondary to persistent pain. The patient is alert and awake. HEENT: Normocephalic, atraumatic. CARDIOVASCULAR: Tachycardic. Positive S1, S2. LUNGS: Tachypneic. Clear to auscultation bilaterally. ABDOMEN: Soft, nontender. Bowel sounds present. EXTREMITIES: No edema. NEUROLOGIC: Still very tender to palpation of the bilateral lower extremities. Still some neck discomfort upon palpation. LABORATORY DATA: WBC 8.6, hemoglobin is 13.9, hematocrit 40.5, platelet count 137. Sodium 135, potassium 3.7, chloride 105, carbon dioxide 23, BUN 12, creatinine 1.04, GFR greater than 60, fasting glucose 116, calcium 7.8, magnesium 2.0, total bilirubin is 1.2, AST 41, ALT 54, alkaline phosphatase 93, protein 14.8, albumin 3.0. CSF fluid analysis showed WBC 20, mononuclear percentage is 25, polynuclear WBC 75, total protein 49, glucose 73. Microbiology of CSF, preliminary cultures showed no cells seen. No organisms seen. CSF PCR is negative. Blood cultures pending. IMAGING STUDIES: CT of the lumbar spine without contrast showed mild bulging annulus from L3-4 to L5-S1 without neuro compromise. CT of the head without contrast measured low attenuation focus in the left temporal lobe. ASSESSMENT AND PLAN: 1. Sepsis. Cerebral fluid analysis is clear of bacterial causes. Discussed with infectious disease. There is a possibility for viral infection. Continue conservative management in the next 24 hours. If there is worsening of the symptoms, we may consider MRI imaging. Awaiting the final results of the CSF analysis. CT of the head demonstrated low attentuation focus in the left temporal lobe. Consider MRI of the brain if needed. 2. Asthma. No exacerbation at this moment. Continue to monitor. 3. Gastroesophageal reflux disease (GERD). Continue to monitor. 4. Alcohol abuse. Last drink was on 10/11/2018. [facility] protocol. Continue thiamine, folic acid and multivitamin. 5. Deep vein thrombosis (DVT) prophylaxis. The patient is on TEDs compressions.
[2018-10-13 16:00] VITALS: BP 168/98
[2018-10-13 17:10] VITALS: BP 154/88
[2018-10-13 20:00] VITALS: BP 156/91
[2018-10-14] VITALS (7 sets, daily range): BP systolic 134–160; BP diastolic 68–85; PULSE 93
[2018-10-14] MEDS: ACYCLOVIR 700 MG in D5W 100 ML IV SCH ×3 (01:26→16:40)
[2018-10-14] MEDS: MORPHINE 4 MG/ML 1ML VIAL/SYRINGE (J2270) IV PRN ×4 (01:27→21:03)
[2018-10-14] MEDS: ACETAMINOPHEN TAB 650MG DOSE (2X325MG) PO PRN ×2 (07:04→15:04)
[2018-10-14] MEDS: KETOROLAC 30 MG/ML VIAL (J1885) IV PRN ×2 (07:04→15:05)
--- NOTE | 2018-10-14 07:16 | IPNPDOC ---
Text Note Date of Service The patient was seen on 10/14/18. NOTE NIGHT FLOAT NOTE Called 0630 for chest pain. Examined at bedside, resting comfortably in bed talking to his /gf in room, NAD. States he has had this pain even prior to admission, sharp intermittent pain on left side of chest radiating to left arm. Pain is reproducible with deep inspiration and palpation. Denies all other ROS, including lightheadedness, n/v/abd pain/coughing/wheeze. No adventitious heart or lung sounds. When further asked about the pain, he states "I'm due for my pain meds." He denies any cardiac history. Vitals stable and WNL. EKG at bedside appears unchanged from admission. No events on tele. Prior 2 sets of cardiac markers negative. Repeat card colbert ordered for am. A-FIB/CHADSVASC A-FIB History Current/History of A-Fib/PAF?: No VS,Fishbone, I+O VS, Fishbone, I+O Vital Signs Date Time Temp Pulse Resp B/P (MAP) Pulse Ox O2 Delivery O2 Flow Rate FiO2 10/14/18 06:51 22 10/14/18 04:00 99.0 96 138/85 (102) 97 10/13/18 07:15 Room Air I&O- Last 24 Hours up to 6 AM 10/14/18 06:00 Intake Total 1654 ml Output Total 1300 ml Balance 354 ml GME ATTESTATION GME ATTESTATION My faculty preceptor for this patient encounter was physically present during the encounter and was fully available. All aspects of the patient interview, examination, medical decision making process, and medical care plan development were reviewed and approved by the faculty preceptor. The faculty preceptor is aware and concurs with the plan as stated in the body of this note and will attest to such by his/her cosignature. RAMAKRISHNA ALVA DO Oct 14, 2018 07:16
[2018-10-14] MEDS: NS 1,000 ML IV SCH ×2 (07:42→19:30)
[2018-10-14] MEDS: IPRATROPIUM 0.5MG/ALBUTEROL 2.5MG INH SOL UD 3ML (DUONEB)(J7620) NEB PRN (08:00)
[2018-10-14 08:10] LABS: CK-MB VALUE MASS < 1.0 NG/ML (<3.6); CPK CREATINE PHOSPHOKINASE 33 U/L (39-308); MB/CK RELATIVE INDEX 3.03 (< OR =4); TROPONIN I < 0.02 NG/ML (< 0.10)
[2018-10-14] MEDS: MULTIVITAMINS/MINERALS THERAP 1 TAB PO SCH (09:27)
[2018-10-14] MEDS: FOLIC ACID 1 MG TAB PO SCH (09:27)
[2018-10-14] MEDS: GABAPENTIN 300 MG CAP PO SCH ×3 (09:27→21:00)
[2018-10-14] MEDS: THIAMINE 100 MG TAB PO SCH (09:27)
[2018-10-14 13:42] LABS: BASO % 0.3 % (0.0-1.0); EOS # 0.2 10^3/uL (0.0-0.50); EOS % 2.4 % (0.0-3.0); HEMATOCRIT 37.2 % (42.0-52.0); HEMOGLOBIN 12.6 g/dl (13.5-17.5); LYMPH # 1.2 10^3/uL (1.5-4.5); LYMPH % 18.8 % (24.0-44.0); MEAN CORPUSCULAR HEMOGLOBIN 33.9 pg (27.0-33.0); MEAN CORPUSCULAR HGB CONC 33.9 g/dl (32.0-36.5); MONO # 0.5 10^3/uL (0.0-0.8); MONO % 8.3 % (0.0-5.0); NEUTROPHILS # 4.3 10^3/uL (1.8-7.7); NEUTROPHILS % 69.4 % (36.0-66.0); PLATELET COUNT, AUTOMATED 118 10^3/uL (150-450); RED BLOOD COUNT 3.72 10^6/uL (4.30-6.10); WHITE BLOOD COUNT 6.3 10^3/uL (4.0-10.0)
[2018-10-14 14:16] LABS: ALBUMIN 2.5 GM/DL (3.2-5.2); ALT/SGPT 53 U/L (12-78); BILIRUBIN,TOTAL 0.6 MG/DL (0.2-1.0); BLOOD UREA NITROGEN 7 MG/DL (7-18); CALCIUM LEVEL 7.8 MG/DL (8.5-10.1); CARBON DIOXIDE LEVEL 25 MEQ/L (21-32); CHLORIDE LEVEL 110 MEQ/L (98-107); GLOMERULAR FILTRATION RATE > 60.0 (>60); GLUCOSE, FASTING 93 MG/DL (70-100); POTASSIUM SERUM 3.4 MEQ/L (3.5-5.1); SODIUM LEVEL 140 MEQ/L (136-145); TOTAL PROTEIN 5.9 GM/DL (6.4-8.2)
[2018-10-14 14:27] LABS: ERYTHROCYTE SEDIMENTATION RATE 35 mm/hr (0-15)
--- NOTE | 2018-10-14 18:50 | IPNPDOC ---
Text Note Date of Service The patient was seen on 10/14/18. NOTE SUBJECTIVE: The patient is seen and examined in the room today. He feels his fever is improving. His neck discomfort is improving. He still has significant lower back pain with radiation. OBJECTIVE: VITAL SIGNS: Listed below. GENERAL: Mild distress secondary to persistent pain. The patient is alert and awake. HEENT: Normocephalic, atraumatic. CARDIOVASCULAR: Regular rate. Positive S1, S2. LUNGS: Clear to auscultation bilaterally. ABDOMEN: Soft, nontender. Bowel sounds present. EXTREMITIES: No edema. NEUROLOGIC: Bilateral lower extremities tenderness. Still some neck discomfort upon palpation. LABORATORY DATA: Listed below. Blood cultures pending. IMAGING STUDIES: CT of the lumbar spine without contrast showed mild bulging annulus from L3-4 to L5-S1 without neuro compromise. CT of the head without contrast measured low attenuation focus in the left temporal lobe. ASSESSMENT AND PLAN: #. Sepsis. - Cerebral fluid analysis is clear of bacterial causes. Discussed with infectious disease. There is a possibility for viral infection. Continue c onservative management. - Follow up with MRI of brain. #. Asthma. No exacerbation at this moment. Continue to monitor. #. Gastroesophageal reflux disease (GERD). Continue to monitor. #. Alcohol abuse. - Last drink was on 10/11/2018. CIWA protocol. Continue thiamine, folic acid and multivitamin. #. Deep vein thrombosis (DVT) prophylaxis. The patient is on TEDs compressions. VS,Fishbone, I+O VS, Fishbone, I+O Laboratory Tests 10/14/18 13:20 Red Blood Count 3.72 L, Mean Corpuscular Volume 100.0 H, Mean Corpuscular Hemoglobin 33.9 H, Mean Corpuscular Hemoglobin Concent 33.9, Red Cell Distribution Width 12.4, Neutrophils (%) (Auto) 69.4 H, Lymphocytes (%) (Auto) 18.8 L, Monocytes (%) (Auto) 8.3 H, Eosinophils (%) (Auto) 2.4, Basophils (%) (Auto) 0.3, Neutrophils # (Auto) 4.3, Lymphocytes # (Auto) 1.2 L, Monocytes # (Auto) 0.5, Eosinophils # (Auto) 0.2, Basophils # (Auto) 0.0, Calcium Level 7.8 L, Aspartate Amino Transf (AST/SGOT) 38 H, Alanine Aminotransferase (ALT/SGPT) 53, Alkaline Phosphatase 76, Total Bilirubin 0.6, Total Protein 5.9 L, Albumin 2.5 L Vital Signs Date Time Temp Pulse Resp B/P (MAP) Pulse Ox O2 Delivery O2 Flow Rate FiO2 10/14/18 16:00 97.8 75 20 160/82 (108) 100 10/13/18 07:15 Room Air I&O- Last 24 Hours up to 6 AM 10/14/18 06:00 Intake Total 1654 ml Output Total 1300 ml Balance 354 ml CHAVA PEREA DO Oct 14, 2018 18:50
--- NOTE | 2018-10-14 19:21 | REP ---
MR BRAIN WITHOUT CONTRAST: HISTORY: Left temporal lobe abnormality. COMPARISON: CT 10/12/2018. Several punctate areas of increased signal intensity on T2 weighted images are present in the subcortical white matter of the right frontal lobe. There is no intraparenchymal hemorrhage, infarct, mass or midline shift . The ventricular system and cortical sulci are dilated consistent with minimal volume loss. There is no extracerebral collection. The visualized sinuses are clear. IMPRESSION: 1. There are several punctate areas of increased signal intensity in the subcortical white matter of the right frontal lobe. This is a nonspecific finding. 2. Minimal volume loss. Electronically Signed by Jered Carrion MD 10/14/2018 07:24 P
--- NOTE | 2018-10-14 19:40 | REP ---
MR LUMBAR SPINE WITHOUT CONTRAST: HISTORY: Back pain. COMPARISON: CT 10/12/2018. Slight decreased signal intensity on T2 weighted images is present in the L4-5 and L5-S1 intervertebral discs. The L4-5 intervertebral disc is decreased in height. These findings are consistent with disc degeneration. There is no disc bulge or herniation at the L1-2 and L2-3 levels. The nerves exit the neural foramina without compression. A diffuse disc bulge is present at the L3-4 level. This abuts the thecal sac. The L3 nerves exit the neural foraminal without compression. A diffuse disc bulge is present at the L4-5 level. This abuts the thecal sac. There is hypertrophy of the posterior articulating facets. The L4 nerves exit the neural foramina without compression. A diffuse disc bulge is present at the L5-S1 level. There is no thecal sac or nerve compression. There is hypertrophy of the posterior articulating facets. The L1 nerves exit the neural foramina without compression. The conus medullaris is normal in appearance terminating at the level of the T12-L1 intervertebral disc. There is fatty infiltration of the filum terminale. Increased signal intensity on T2-weighted images is present in the end plates of the L3 and 4 vertebral bodies. This represents degenerative change. IMPRESSION: 1. Diffuse disc bulges at the L3-4 and L4-5 levels. The disc bulges abut the thecal sac. 2. Diffuse disc bulge at the L5-S1 level without thecal sac or nerve compression. Electronically Signed by Jered Carrion MD 10/14/2018 08:08 P
[2018-10-15] VITALS: BP 130/78
[2018-10-15] MEDS: ACYCLOVIR 700 MG in D5W 100 ML IV SCH ×2 (00:27→08:04)
[2018-10-15] MEDS: KETOROLAC 30 MG/ML VIAL (J1885) IV PRN ×3 (00:27→16:12)
[2018-10-15] MEDS: ACETAMINOPHEN TAB 650MG DOSE (2X325MG) PO PRN ×3 (00:27→16:11)
[2018-10-15 04:00] VITALS: BP 146/84
[2018-10-15 05:30] LABS: HEMATOCRIT 37.1 % (42.0-52.0); HEMOGLOBIN 12.6 g/dl (13.5-17.5); MEAN CORPUSCULAR HEMOGLOBIN 33.8 pg (27.0-33.0); MEAN CORPUSCULAR VOLUME 99.5 fl (80.0-96.0); PLATELET COUNT, AUTOMATED 121 10^3/uL (150-450); RED BLOOD COUNT 3.73 10^6/uL (4.30-6.10)
[2018-10-15] MEDS: NS 1,000 ML IV SCH (05:30)
[2018-10-15 06:02] LABS: BLOOD UREA NITROGEN 12 MG/DL (7-18); C REACTIVE PROTEIN QUANTITATIV 5.93 MG/DL (0.00-0.30); CALCIUM LEVEL 7.9 MG/DL (8.5-10.1); CARBON DIOXIDE LEVEL 24 MEQ/L (21-32); CHLORIDE LEVEL 114 MEQ/L (98-107); CREATININE FOR GFR 0.87 MG/DL (0.70-1.30); GLOMERULAR FILTRATION RATE > 60.0 (>60); GLUCOSE, FASTING 87 MG/DL (70-100); MAGNESIUM LEVEL 1.9 MG/DL (1.8-2.4); SODIUM LEVEL 142 MEQ/L (136-145)
[2018-10-15 08:00] VITALS: BP 188/90
[2018-10-15] MEDS: GABAPENTIN 300 MG CAP PO SCH ×2 (08:05→16:11)
[2018-10-15] MEDS: FOLIC ACID 1 MG TAB PO SCH (08:05)
[2018-10-15] MEDS: MULTIVITAMINS/MINERALS THERAP 1 TAB PO SCH (08:05)
[2018-10-15] MEDS: THIAMINE 100 MG TAB PO SCH (08:06)
[2018-10-15] MEDS: MORPHINE 4 MG/ML 1ML VIAL/SYRINGE (J2270) IV PRN ×2 (10:01→14:35)
[2018-10-15 12:00] VITALS: BP 142/82
--- NOTE | 2018-10-15 12:03 | ECGEPIP ---
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
[2018-10-15] MEDS ORDERED: FOLI1TAB11 PO (14:52)
[2018-10-15] MEDS ORDERED: ZOVI800T PO (14:52)
[2018-10-15] MEDS ORDERED: MULT-77 PO (14:52)
[2018-10-15] MEDS ORDERED: ACET1TAB55 PO (14:52)
[2018-10-15] MEDS ORDERED: THIA100TA PO (14:52)
[2018-10-15] MEDS ORDERED: GABA-843 PO (14:52)
[2018-10-15] MEDS ORDERED: TRAM50TA2 PO (14:53)
--- NOTE | 2018-10-15 18:37 | DSES ---
DATE OF ADMISSION: 10/12/2018 DATE OF DISCHARGE: 10/15/2018 PRIMARY CARE PROVIDER: [facility] CONSULTANTS: None. DISCHARGE DIAGNOSES: 1. Sepsis. 2. Viral meningitis. 3. Asthma. 4. Gastroesophageal reflux disease. 5. Tobacco abuse. HOSPITALIZATION COURSE: Patient is a 43-year-old male who presented to [facility] on 10/12/2018 with a complaint of persistent low back pain with radiation to the lower extremity and neck rigidity. Patient was admitted under hospitalist service for sepsis. There is a high suspicion for central nervous system (OCEANOLOGIST) involvement. Blood cultures obtained an lumbar puncture performed while patient in the emergency room, and patient started on empiric antibiotics and antiviral treatments. Patient also stated on intravenous (IV) support along with pain medication. Later, result came back for suspicion for viral infection. Due to severity of patient's symptoms, imaging of the brain and lumbar region was ordered. Later, result to reviewed with the patient. With antiviral treatment, patient's symptoms showed some gradual improvement. Later, patient had resolution of fever, neck discomfort, and lower back discomfort gradually improved, and patient passed physical therapy evaluation and demonstrated stable motor function. Patient determined stable for discharge with recommendation to finish a course of antiviral therapy. Patient recommended to followup with primary care provider in 1 week. VITAL SIGNS: On the day of discharge show temperature 98.9, pulse 62, respirations 16, blood pressure 142/82, pulse oximetry 98% in room air. (Highest temperature during hospitalization was 101.1.) LABORATORY DATA: On day of discharge, WBC 6, hemoglobin 12.6, hematocrit 37.1, platelet count 121. Sodium 142 potassium 4, chloride 114, carbon dioxide 24, BUN 12, creatinine 0.87, GFR greater than 60, fasting glucose 87, calcium 7.9, magnesium 1.9, C-reactive protein 5.93 (highest C-reactive protein is 14.8). Urine toxicology level is positive for opiate. Urinalysis is negative. CSF analysis shows 20 WBC, 25% mononuclear cells, 75% polynuclear WBC, 73 glucose, 49 total protein. CSF culture is negative. CSF PCR negative. Blood cultures from 10/12/2018 shows no growth after 28 hours. IMAGING STUDIES: Chest x-ray demonstrated granulomatous calcification on the left. CT of lumbar spine without contrast showed mild bulging annulus from L3-4 through L5-S1 without neurologic compromise. CT of the head without contrast demonstrated low-attenuation focus in the left temporal lobe. MRI of the brain without contrast showed several punctate areas of increased signal intensity in the subcortical white matter of the right frontal lobe. This is a nonspecific finding. Minimal volume loss. MRI of lumbar spine without contrast showed diffuse disc bulging at L3-4 and L4-5 level. Diffuse disc bulge at L5-S1 level without thecal sac or nerve compression. DISCHARGE MEDICATION: - Tylenol 650 mg by mouth every 8 hours as needed - acyclovir 800 mg by mouth three times a day for 10 more days - folic acid 1 mg by mouth daily - gabapentin 300 mg by mouth three times a day - multivitamin one tablet by mouth daily - thiamine 100 mg by mouth daily - albuterol two puffs inhalation four times a day as needed - vitamin D2 at 50,000 units by mouth weekly - Breo one puff inhalation daily - Incruse Ellipta one puff inhalation daily DISCHARGE INSTRUCTIONS: Discontinue line. Discharge home. Activity as tolerated. Diet as tolerated. Patient should followup with her primary care provider in 1 week. Patient should finish a course of antiviral medication for his viral meningitis. DISCHARGE CONDITION: Fair. DISCHARGE TIME: Greater than 30 minutes.
[2018-10-17 00:07] LABS: Lyme Disease IgG/IgM Antibodie <0.91 ISR (0.00-0.90); Lyme Disease IgM Ab Quantitati <0.80 index (0.00-0.79); VITAMIN B1 LEVEL WHOLE BLOOD 119.6 nmol/L (66.5-200.0)
== END 2018-10-15 16:30 | disposition home or self-care (01) | DRG 720 ==
LOC: M ED 09:50 → M ED INP 17:17 → M PCU 10-13 16:35
PROVIDERS: ADMIT Internal Medicine; ATTEND Internal Medicine
DX: A41.9 Sepsis, unspecified organism (principal); A87.9 Viral meningitis, unspecified; J45.909 Unspecified asthma, uncomplicated; K21.9 Gastro-esophageal reflux disease without esophagitis; F17.200 Nicotine dependence, unspecified, uncomplicated; Z79.899 Other long term (current) drug therapy; F10.10 Alcohol abuse, uncomplicated

== ENCOUNTER → 2018-10-27 | Outpatient (REF) | payer OTHER ==
[~2018-10-27] MED LIST changes: +ACET1TAB55 PO; +ALBU8.5H; +BREO1INH3 INH; +CEFD1CAP8 PO; +FOLI1TAB11 PO; +GABA-843 PO; +INCR1INH INH; +MONT10TA2; +MULT-77 PO; +THIA100TA PO; +TRAM50TA2 PO; +VENTAER INH; +VITA500045 PO; +ZOVI800T PO
[2018-10-27 13:52] LABS: BASO # 0.1 10^3/uL (0.0-0.2); BASO % 0.8 % (0.0-1.0); EOS # 0.1 10^3/uL (0.0-0.50); HEMATOCRIT 46.8 % (42.0-52.0); HEMOGLOBIN 15.6 g/dl (13.5-17.5); LYMPH # 1.5 10^3/uL (1.5-4.5); MEAN CORPUSCULAR HEMOGLOBIN 34.2 pg (27.0-33.0); MEAN CORPUSCULAR HGB CONC 33.3 g/dl (32.0-36.5); MEAN CORPUSCULAR VOLUME 102.6 fl (80.0-96.0); MONO # 0.6 10^3/uL (0.0-0.8); MONO % 7.3 % (0.0-5.0); NEUTROPHILS # 6.4 10^3/uL (1.8-7.7); NEUTROPHILS % 73.8 % (36.0-66.0); PLATELET COUNT, AUTOMATED 351 10^3/uL (150-450); RED BLOOD COUNT 4.56 10^6/uL (4.30-6.10); WHITE BLOOD COUNT 8.7 10^3/uL (4.0-10.0)
[2018-10-27 14:16] LABS: ALBUMIN 4.4 GM/DL (3.2-5.2); ALT/SGPT 48 U/L (12-78); BILIRUBIN,TOTAL 0.4 MG/DL (0.2-1.0); BLOOD UREA NITROGEN 8 MG/DL (7-18); CALCIUM LEVEL 9.2 MG/DL (8.5-10.1); CARBON DIOXIDE LEVEL 26 MEQ/L (21-32); CHLORIDE LEVEL 105 MEQ/L (98-107); CHOLESTEROL LEVEL 256 MG/DL (<200); CHOLESTEROL RISK RATIO 4.266 (<5); CREATININE FOR GFR 0.96 MG/DL (0.70-1.30); GLOMERULAR FILTRATION RATE > 60.0 (>60); GLUCOSE, FASTING 131 MG/DL (70-100); HDL CHOLESTEROL 60 MG/DL (>40); LDL CHOLESTEROL 151 MG/DL (<100); NON-HDL-C 196 MG/DL; POTASSIUM SERUM 4.6 MEQ/L (3.5-5.1); SODIUM LEVEL 139 MEQ/L (136-145); TOTAL PROTEIN 7.6 GM/DL (6.4-8.2); TRIGLYCERIDES LEVEL 226 MG/DL (<150)
[2018-10-27 14:18] LABS: TOTAL 25(OH) VITAMIN D 42.9 NG/ML (30.0-100.0)
[2018-10-27 14:21] LABS: HEMOGLOBIN A1c 5.9 %
== END ==
LOC: M LAB REF 12:51
PROVIDERS: ATTEND Family Medicine
DX: Z13.228 Encounter for screening for other metabolic disorders (principal)

== ENCOUNTER 2019-08-23 12:48 | Emergency (ER) | payer OTHER ==
[~2019-08-23] VITALS: Ht 170.2 cm; Wt 75.9 kg
[~2019-08-23 12:48] MED LIST changes: -MONT10TA2; +MONT10TA4
[2019-08-23] MEDS ORDERED: OMEP-221 PO (12:58)
[2019-08-23] MEDS ORDERED: LISI10TA4 PO (12:58)
[2019-08-23 14:32] LABS: BASO # 0.1 10^3/uL (0.0-0.2); BASO % 0.9 % (0.0-1.0); EOS # 0.1 10^3/uL (0.0-0.5); EOS % 1.2 % (0.0-3.0); HEMATOCRIT 48.4 % (42.0-52.0); LYMPH # 3.4 10^3/uL (1.5-5.0); LYMPH % 30.3 % (24.0-44.0); MEAN CORPUSCULAR HEMOGLOBIN 33.2 pg (27.0-33.0); MEAN CORPUSCULAR HGB CONC 35.1 g/dl (32.0-36.5); MEAN CORPUSCULAR VOLUME 94.5 fl (80.0-96.0); MONO # 0.8 10^3/uL (0.0-0.8); MONO % 7.1 % (0.0-5.0); NEUTROPHILS # 6.8 10^3/uL (1.5-8.5); NEUTROPHILS % 60.2 % (36.0-66.0); PLATELET COUNT, AUTOMATED 253 10^3/uL (150-450); RED BLOOD COUNT 5.12 10^6/uL (4.30-6.10); WHITE BLOOD COUNT 11.2 10^3/uL (4.0-10.0)
[2019-08-23 14:38] LABS: AMORPHOUS SEDIMENT SMALL (NEGATIVE); APPEARANCE, URINE CLEAR (CLEAR); BACTERIA, URINE AUTO NEGATIVE (NEGATIVE); BILIRUBIN, URINE AUTO NEGATIVE (NEGATIVE); BLOOD, URINE BLOOD NEGATIVE (NEGATIVE); COLOR, URINE STRAW (YELLOW); GLUCOSE, URINE (UA) AUTO NEGATIVE (NEGATIVE); KETONE, URINE AUTO NEGATIVE (NEGATIVE); LEUKOCYTE ESTERASE, URINE AUTO NEGATIVE (NEGATIVE); NITRITE, URINE AUTO NEGATIVE (NEGATIVE); PROTEIN, URINE AUTO NEGATIVE (NEGATIVE); RBC, URINE AUTO 0 /HPF (0-3); SPECIFIC GRAVITY URINE AUTO 1.002 (1.002-1.035); SQUAMOUS EPITHELIAL CELL UR AU 0 /HPF (0-6); UROBILINOGEN, URINE AUTO 0.2 mg/dL (0.0-2.0); WBC, URINE AUTO 0 /HPF (0-3)
[2019-08-23 14:58] LABS: ALBUMIN 4.1 GM/DL (3.2-5.2); ALT/SGPT 84 U/L (12-78); BILIRUBIN,DIRECT 0.1 MG/DL (0.0-0.2); BILIRUBIN,TOTAL 0.3 MG/DL (0.2-1.0); BLOOD UREA NITROGEN 5 MG/DL (7-18); CARBON DIOXIDE LEVEL 25 MEQ/L (21-32); CHLORIDE LEVEL 105 MEQ/L (98-107); GLOMERULAR FILTRATION RATE > 60.0 (>60); GLUCOSE, FASTING 67 MG/DL (70-100); LIPASE 95 U/L (73-393); POTASSIUM SERUM 4.3 MEQ/L (3.5-5.1); SODIUM LEVEL 139 MEQ/L (136-145); TOTAL PROTEIN 7.5 GM/DL (6.4-8.2)
[2019-08-23 17:30] LABS: AMYLASE 51 U/L (25-115); CK-MB VALUE MASS < 1.0 NG/ML (<3.6); CPK CREATINE PHOSPHOKINASE 160 U/L (39-308); ETHYL ALCOHOL (ETHANOL) 0.176 % (0.000-0.010); MB/CK RELATIVE INDEX 0.62 (< OR =4); TROPONIN I < 0.02 NG/ML (< 0.10)
[2019-08-23] MEDS ORDERED: ONDANSETRON 4MG/2ML VIAL (J2405) IV ONE (17:30)
[2019-08-23] MEDS ORDERED: PANTOPRAZOLE 40MG INJ (PROTONIX) (C9113) IV ONE (17:30)
[2019-08-23] MEDS ORDERED: ISOVUE-370 76% 100ML VIAL (Q9967) As Ordered ONE (17:36)
--- NOTE | 2019-08-23 18:40 | REPVR ---
PROCEDURE INFORMATION: Exam: CT Abdomen And Pelvis With Contrast Exam date and time: 08/23/2019 5:56 PM Age: 44 years old Clinical indication: Abdominal pain; Additional info: Llq abd pain, elevated liver function, n/v TECHNIQUE: Imaging protocol: Computed tomography of the abdomen and pelvis with intravenous contrast. Radiation optimization: All CT scans at this facility use at least one of these dose optimization techniques: automated exposure control; mA and/or kV adjustment per patient size (includes targeted exams where dose is matched to clinical indication); or iterative reconstruction. Contrast material: ISO 370; Contrast volume: 100 ml; Contrast route: IV; COMPARISON: CT ABD PELVIS WITH CONTRAST 05/17/2017 1:41 AM FINDINGS: Mediastinum: Small sliding hiatal hernia. Liver: There is a diffuse decrease in hepatic parenchymal density, consistent with steatosis. Mild hepatomegaly. Steatohepatitis to be excluded clinically. Gallbladder and bile ducts: Normal. No calcified stones. No ductal dilation. Pancreas: Normal. No ductal dilation. Spleen: Normal. No splenomegaly. Adrenals: Normal. No mass. Kidneys and ureters: Normal. No hydronephrosis. Stomach and bowel: Unremarkable. No obstruction. No mucosal thickening. Appendix: No evidence of appendicitis. Intraperitoneal space: Unremarkable. No free air. No significant fluid collection. Vasculature: The aorta demonstrates mild atherosclerotic calcification. Lymph nodes: Unremarkable. No enlarged lymph nodes. Bladder: Thickened bladder wall likely related to a combination of incomplete distention and bladder outlet obstruction. Clinical correlation to exclude mild cystitis suggested. Reproductive: The prostate gland demonstrates mild hyperplasia. Bones/joints: Unremarkable. No acute fracture. Soft tissues: There is a small a moderate umbilical hernia. There is no evidence of incarceration. IMPRESSION: 1. There is a diffuse decrease in hepatic parenchymal density, consistent with steatosis. Mild hepatomegaly. Steatohepatitis to be excluded clinically. 2. Mild prostatic hyperplasia. 3. Thickened bladder wall likely related to a combination of incomplete distention and bladder outlet obstruction. Clinical correlation to exclude mild cystitis suggested. 4. No significant interval change. Electronically signed by: Kris Rendon On 08/23/2019 18:39:46 PM
[2019-08-23] MEDS ORDERED: SUCR1ORA PO (19:23)
[2019-08-23 19:29] VITALS: BP 140/86
[2019-08-23] MEDS ORDERED: SUCRALFATE SUSP 1GM/10ML UD PO ONE (19:30)
--- NOTE | 2019-08-24 06:56 | ECGEPIP ---
[facility] - ED Test Date: 2019-08-23 Pat Name: BRANDON BELTRE Department: Room: - Gender: Male [employer] Farmer: NATHALIA : 1975 Requested By: GUSTAVO Ceballos Order Number: [id number] Reading MD: Deonte Maciel Measurements Intervals [place] Rate: 78 P: 35 [place]: 161 QRS: 48 QRSD: 97 T: 29 QT: 352 QTc: 402 Interpretive Statements SINUS RHYTHM POOR R WAVE PROGRESSION INCOMPLETE RIGHT BUNDLE BRANCH BLOCK SIMILAR TO 10/14/18 Electronically Signed on 08-24-2019 6:55:30 EST by Deonte Maciel
--- NOTE | 2019-08-24 11:25 | ED PDOC ---
Post-Departure Follow-Up dr conway faxed formal report of ct abd/p for fu Amrit Enriquez MD Aug 24, 2019 11:24
== END 2019-08-23 19:33 | disposition home or self-care (01) ==
LOC: M ED 12:48
DX: I45.19 Other right bundle-branch block (principal); K29.20 Alcoholic gastritis without bleeding; K21.0 Gastro-esophageal reflux disease with esophagitis; F10.20 Alcohol dependence, uncomplicated; J45.909 Unspecified asthma, uncomplicated; F17.200 Nicotine dependence, unspecified, uncomplicated; Z79.899 Other long term (current) drug therapy; Z88.0 Allergy status to penicillin
CPT/HCPCS: 74177; 80048; 80076; 81001; 82150; 82550; 82553; 83690; 85025; 93005; 96374; 96375; 99284; C9113; G0480; J2405; Q9967

== ENCOUNTER → 2021-02-28 | Outpatient (CLI) | payer OTHER ==
[~2021-02-28] MED LIST changes: +GABA-282 PO; -GABA-843 PO; +LISI10TA22 PO; +MONT10TA10; -MONT10TA4; +OMEP-221 PO; +SUCR1ORA PO
--- NOTE | 2021-02-28 08:39 | REP ---
INDICATION: CRABTREE. COMPARISON: Comparison study is from October 21, 2015. Comparison CT study is from August 23, 2019. TECHNIQUE: Right upper quadrant sonography. FINDINGS: Scanning through the right upper quadrant of the abdomen demonstrates a normal sized, thin-walled gallbladder without evidence of stone or polyp. Common bile duct is normal measuring 0.3 cm in greatest diameter. There is increased echogenicity in the liver parenchyma diffusely consistent with moderate fatty infiltration. Areas of fat sparing are seen near the gallbladder. Liver size is normal. No pancreatic abnormality is observed. No right renal abnormality is seen. There is no evidence of ascites. The right kidney measures 10.3 x 5.3 x 4.7 cm. IMPRESSION: Evidence of moderate fatty infiltration of the liver. Areas of fat sparing near the gallbladder. Otherwise negative right upper quadrant sonography. <Electronically signed by Ulises Whitt > 02/28/21 08
== END ==
LOC: M RAD 07:03
PROVIDERS: ATTEND Pediatrics
DX: K75.81 Nonalcoholic steatohepatitis (NASH) (principal)

== ENCOUNTER 2022-02-07 20:28 | Emergency (ER) | payer OTHER ==
[~2022-02-07] VITALS: Ht 167.6 cm; Wt 70.5 kg
[2022-02-07 20:28] VITALS: BP 134/90
[~2022-02-07 20:28] MED LIST changes: -CEFD1CAP8 PO; +CEFD300C41 PO; -MONT10TA10; +MONT10TA97; -OMEP-221 PO; +OMEP40CA5 PO
[2022-02-07] MEDS ORDERED: VITA200016 PO (20:46)
[2022-02-07] MEDS ORDERED: ZOLO100T PO (20:46)
[2022-02-07] MEDS ORDERED: FAMO40TA3 PO (20:46)
[2022-02-07] MEDS ORDERED: STIO1AER IN (20:46)
== END 2022-02-07 23:10 | disposition left against medical advice (07) ==
LOC: M ED 20:28
DX: Z53.21 Procedure and treatment not carried out due to patient leaving prior to being seen by health care provider (principal)

== ENCOUNTER → 2022-05-07 | Outpatient (REF) | payer OTHER ==
[~2022-05-07] MED LIST changes: +FAMO40TA3 PO; +STIO1AER IN; +VITA200016 PO; +ZOLO100T PO
[2022-05-07 18:16] LABS: BASO # 0.1 10^3/uL (0.0-0.2); BASO % 0.7 % (0.0-1.0); EOS # 0.1 10^3/uL (0.0-0.5); EOS % 1.1 % (0.0-3.0); HEMATOCRIT 45.1 % (42.0-52.0); HEMOGLOBIN 15.5 g/dl (13.5-17.5); LYMPH # 2.2 10^3/uL (1.5-5.0); LYMPH % 31.1 % (24.0-44.0); MEAN CORPUSCULAR HGB CONC 34.4 g/dl (32.0-36.5); MONO # 0.8 10^3/uL (0.0-0.8); MONO % 10.8 % (2.0-8.0); PLATELET COUNT, AUTOMATED 222 10^3/uL (150-450); WHITE BLOOD COUNT 7.1 10^3/uL (4.0-10.0)
[2022-05-07 21:35] LABS: ALBUMIN 4.2 G/DL (3.2-5.2); ALT/SGPT 22 U/L (7.0-40); BILIRUBIN,TOTAL 0.4 MG/DL (0.3-1.2); BLOOD UREA NITROGEN 10 MG/DL (9-23); CALCIUM LEVEL 9.9 MG/DL (8.5-10.1); CARBON DIOXIDE LEVEL 28 MMOL/L (20-31); CHLORIDE LEVEL 101 MMOL/L (98-107); CHOLESTEROL LEVEL 207 MG/DL (<200); CREATININE FOR GFR 0.88 MG/DL (0.70-1.30); GLOMERULAR FILTRATION RATE > 60.0 (>60); GLUCOSE, FASTING 86 MG/DL (60-100); LDL CHOLESTEROL 138.4 MG/DL (<100); NON-HDL-C 162 MG/DL; POTASSIUM SERUM 5.1 MMOL/L (3.5-5.1); SODIUM LEVEL 136 MMOL/L (136-145); THYROID STIMULATING HORMONE 1.611 uIU/ML (0.55-4.78); TRIGLYCERIDES LEVEL 118 MG/DL (<150)
== END ==
LOC: M LAB REF 16:33
PROVIDERS: ATTEND Pediatrics
DX: K70.0 Alcoholic fatty liver (principal); F41.9 Anxiety disorder, unspecified; E78.5 Hyperlipidemia, unspecified; I10 Essential (primary) hypertension

== ENCOUNTER → 2022-09-09 | Outpatient (REF) | payer OTHER ==
[2022-09-09 17:00] LABS: BASO # 0.1 10^3/uL (0.0-0.2); BASO % 1.1 % (0.0-1.0); EOS # 0.2 10^3/uL (0.0-0.5); EOS % 2.1 % (0.0-3.0); HEMATOCRIT 45.5 % (42.0-52.0); HEMOGLOBIN 15.7 g/dl (13.5-17.5); LYMPH # 3.9 10^3/uL (1.5-5.0); LYMPH % 36.3 % (24.0-44.0); MEAN CORPUSCULAR HEMOGLOBIN 33.3 pg (27.0-33.0); MEAN CORPUSCULAR HGB CONC 34.5 g/dl (32.0-36.5); MEAN CORPUSCULAR VOLUME 96.4 fl (80.0-96.0); MONO # 0.9 10^3/uL (0.0-0.8); MONO % 8.6 % (2.0-8.0); NEUTROPHILS # 5.6 10^3/uL (1.5-8.5); NEUTROPHILS % 51.5 % (36.0-66.0); PLATELET COUNT, AUTOMATED 213 10^3/uL (150-450); RED BLOOD COUNT 4.72 10^6/uL (4.30-6.10); WHITE BLOOD COUNT 10.8 10^3/uL (4.0-10.0)
[2022-09-09 17:28] LABS: LIPASE 30 U/L (12-53)
[2022-09-09 17:31] LABS: ALBUMIN 3.9 G/DL (3.2-5.2); ALKALINE PHOSPHATASE 116 U/L (46-116); ALT/SGPT 40 U/L (7.0-40); AST/SGOT 41 U/L (<34); BILIRUBIN,TOTAL 0.5 MG/DL (0.3-1.2); BLOOD UREA NITROGEN 9 MG/DL (9-23); CALCIUM LEVEL 8.4 MG/DL (8.5-10.1); CARBON DIOXIDE LEVEL 22 MMOL/L (20-31); CHLORIDE LEVEL 103 MMOL/L (98-107); CREATININE FOR GFR 0.78 MG/DL (0.70-1.30); GLOMERULAR FILTRATION RATE > 60.0 (>60); GLUCOSE, FASTING 70 MG/DL (60-100); POTASSIUM SERUM 4.2 MMOL/L (3.5-5.1); SODIUM LEVEL 136 MMOL/L (136-145); TOTAL PROTEIN 6.8 G/DL (5.7-8.2)
== END ==
LOC: M LAB REF 16:13
PROVIDERS: ATTEND Pediatrics
DX: R10.10 Upper abdominal pain, unspecified (principal)

== ENCOUNTER → 2022-09-10 | Outpatient (CLI) | payer OTHER | LOC: M RAD 10:55 | PROVIDERS: ATTEND Pediatrics | DX: J44.9 Chronic obstructive pulmonary disease, unspecified (principal) ==

== ENCOUNTER 2023-10-19 22:10 | Emergency (ER) | payer OTHER ==
[~2023-10-19 22:10] MED LIST changes: +CEFD1CAP9 PO; -CEFD300C41 PO
[2023-10-19 22:30] VITALS: BP 114/63; TEMP 97.8; O2SAT 97
[2023-10-19 23:10] LABS: HEMATOCRIT 44.5 % (42.0-52.0); HEMOGLOBIN 15.4 g/dl (13.5-17.5); MEAN CORPUSCULAR HEMOGLOBIN 32.7 pg (27.0-33.0); MEAN CORPUSCULAR HGB CONC 34.6 g/dl (32.0-36.5); MEAN CORPUSCULAR VOLUME 94.5 fl (80.0-96.0); PLATELET COUNT, AUTOMATED 260 10^3/uL (150-450); RED BLOOD COUNT 4.71 10^6/uL (4.30-6.10)
[2023-10-19 23:39] LABS: ETHYL ALCOHOL (ETHANOL) 0.154 % (0.000-0.010)
[2023-10-19 23:41] LABS: ALKALINE PHOSPHATASE 130 U/L (46-116); ALT/SGPT 17 U/L (7.0-40); AST/SGOT 27 U/L (<34); BILIRUBIN,DIRECT 0.1 MG/DL (<0.4); BILIRUBIN,TOTAL 0.4 MG/DL (0.3-1.2); BLOOD UREA NITROGEN 15 MG/DL (9-23); CALCIUM LEVEL 10.1 MG/DL (8.5-10.1); CARBON DIOXIDE LEVEL 24 MMOL/L (20-31); CHLORIDE LEVEL 101 MMOL/L (98-107); CREATININE FOR GFR 0.98 MG/DL (0.70-1.30); GLOMERULAR FILTRATION RATE > 60.0 (>60); GLUCOSE, FASTING 105 MG/DL (60-100); POTASSIUM SERUM 4.2 MMOL/L (3.5-5.1); SALICYLATE LEVEL < 3.0 MG/DL (<30); SODIUM LEVEL 135 MMOL/L (136-145); TOTAL PROTEIN 7.1 G/DL (5.7-8.2)
[2023-10-19 23:43] LABS: THYROID STIMULATING HORMONE 3.817 uIU/ML (0.55-4.78)
[2023-10-20 00:06] LABS: AMPHETAMINES LEVEL URINE NEGATIVE (NEGATIVE); BENZODIAZEPINES URINE NEGATIVE (NEGATIVE)
[2023-10-20 00:07] LABS: BARBITURATES URINE NEGATIVE (NEGATIVE); CANNABINOIDS URINE NEGATIVE (NEGATIVE); COCAINE METABOLITE URINE NEGATIVE (NEGATIVE); METHADONE URINE NEGATIVE (NEGATIVE); OPIATES URINE NEGATIVE (NEGATIVE); PHENCYCLIDINE URINE NEGATIVE (NEGATIVE)
== END 2023-10-20 03:29 | disposition home or self-care (01) ==
LOC: M ED 22:10
DX: F10.129 Alcohol abuse with intoxication, unspecified (principal); J44.9 Chronic obstructive pulmonary disease, unspecified; I10 Essential (primary) hypertension; M54.50 Low back pain, unspecified; F41.9 Anxiety disorder, unspecified; F10.10 Alcohol abuse, uncomplicated; Z88.0 Allergy status to penicillin; Z79.52 Long term (current) use of systemic steroids; Z79.811 Long term (current) use of aromatase inhibitors; Z79.899 Other long term (current) drug therapy

== ENCOUNTER → 2024-03-28 | Outpatient (CLI) | payer OTHER ==
[~2024-03-28] MED LIST changes: +GABA-1172 PO; -GABA-282 PO
== END ==
LOC: M RAD 16:28
PROVIDERS: ATTEND Pediatrics
DX: R22.0 Localized swelling, mass and lump, head (principal); R07.89 Other chest pain

== ENCOUNTER 2024-08-02 14:39 | Emergency (ER) | payer OTHER ==
[~2024-08-02] VITALS: Ht 170.2 cm; Wt 67.5 kg
[2024-08-02 15:16] LABS: BASO % 0.5 % (0.0-1.0); EOS # 0.1 10^3/uL (0.0-0.5); EOS % 0.9 % (0.0-3.0); HEMATOCRIT 51.2 % (42.0-52.0); HEMOGLOBIN 17.7 g/dl (13.5-17.5); LYMPH # 1.7 10^3/uL (1.5-5.0); LYMPH % 22.2 % (24.0-44.0); MEAN CORPUSCULAR HEMOGLOBIN 33.6 pg (27.0-33.0); MEAN CORPUSCULAR HGB CONC 34.6 g/dl (32.0-36.5); MEAN CORPUSCULAR VOLUME 97.2 fl (80.0-96.0); MONO # 0.7 10^3/uL (0.0-0.8); MONO % 9.2 % (2.0-8.0); NEUTROPHILS # 5.1 10^3/uL (1.5-8.5); NEUTROPHILS % 67.1 % (36.0-66.0); PLATELET COUNT, AUTOMATED 212 10^3/uL (150-450); RED BLOOD COUNT 5.27 10^6/uL (4.30-6.10); WHITE BLOOD COUNT 7.5 10^3/uL (4.0-10.0)
[2024-08-02 15:48] LABS: CK-MB VALUE MASS < 1.0 NG/ML (<3.6); LIPASE 26 U/L (12-53)
[2024-08-02 15:50] LABS: ALBUMIN 4.5 G/DL (3.2-5.2); ALKALINE PHOSPHATASE 130 U/L (40-129); ALT/SGPT 44 U/L (7.0-40); AST/SGOT 50 U/L (<34); BILIRUBIN,DIRECT 0.2 MG/DL (<0.4); BLOOD UREA NITROGEN 9 MG/DL (9-23); CALCIUM LEVEL 10.4 MG/DL (8.5-10.1); CARBON DIOXIDE LEVEL 28 MMOL/L (20-31); CHLORIDE LEVEL 103 MMOL/L (98-107); CREATININE FOR GFR 0.87 MG/DL (0.70-1.30); GLOMERULAR FILTRATION RATE > 60.0 (>60); GLUCOSE, FASTING 122 MG/DL (60-100); POTASSIUM SERUM 5.2 MMOL/L (3.5-5.1); SODIUM LEVEL 136 MMOL/L (136-145); TOTAL PROTEIN 8.3 G/DL (5.7-8.2)
[2024-08-02 15:53] LABS: CPK CREATINE PHOSPHOKINASE 99 U/L (46-171); MB/CK RELATIVE INDEX 1.01 (< OR =4)
[2024-08-02] MEDS ORDERED: ISOVUE-370 76% 100ML VIAL As Ordered ONE (16:57)
[2024-08-02 18:12] VITALS: BP 124/81; TEMP 97.5; O2SAT 96
== END 2024-08-02 18:25 | disposition home or self-care (01) ==
LOC: M ED 14:39 → EDBD 14:39 → M ED 18:25
DX: R07.9 Chest pain, unspecified (principal); J44.9 Chronic obstructive pulmonary disease, unspecified; K21.9 Gastro-esophageal reflux disease without esophagitis; F17.200 Nicotine dependence, unspecified, uncomplicated; F10.10 Alcohol abuse, uncomplicated; Z88.0 Allergy status to penicillin; Z79.52 Long term (current) use of systemic steroids; Z79.899 Other long term (current) drug therapy
CPT/HCPCS: 36415; 71045; 71275; 80048; 80076; 82550; 82553; 83690; 84484; 85025; 93005; 93041; 94760; 99285; Q9967

== ENCOUNTER → 2025-02-07 | Outpatient (REF) | payer OTHER ==
[2025-02-07 17:10] LABS: BASO # 0.1 10^3/uL (0.0-0.2); BASO % 0.8 % (0.0-1.0); EOS # 0.2 10^3/uL (0.0-0.5); EOS % 1.7 % (0.0-3.0); LYMPH # 2.8 10^3/uL (1.5-5.0); LYMPH % 27.5 % (24.0-44.0); MONO # 0.7 10^3/uL (0.0-0.8); MONO % 7.2 % (2.0-8.0); NEUTROPHILS # 6.4 10^3/uL (1.5-8.5); NEUTROPHILS % 62.5 % (36.0-66.0); PLATELET COUNT, AUTOMATED 255 10^3/uL (150-450)
[2025-02-07 17:15] LABS: ALT/SGPT 19 U/L (7.0-40); AST/SGOT 23 U/L (<34); CALCIUM LEVEL 9.3 MG/DL (8.5-10.1); CARBON DIOXIDE LEVEL 28 MMOL/L (20-31); CHLORIDE LEVEL 104 MMOL/L (98-107); CHOLESTEROL LEVEL 245 MG/DL (<200); CHOLESTEROL RISK RATIO 7.85 (<5); CREATININE FOR GFR 0.94 MG/DL (0.70-1.30); GLOMERULAR FILTRATION RATE > 90.0 (>60); LDL CHOLESTEROL 158.2 MG/DL (<100); NON-HDL-C 213.8 MG/DL; POTASSIUM SERUM 4.3 MMOL/L (3.5-5.1); SODIUM LEVEL 140 MMOL/L (136-145); TRIGLYCERIDES LEVEL 278 MG/DL (<150)
[2025-02-07 18:21] LABS: ESTIMATED AVERAGE GLUCOSE 108.0 MG/DL (60-110)
== END ==
LOC: M LAB REF 16:28
PROVIDERS: ATTEND Pediatrics
DX: I10 Essential (primary) hypertension (principal); R73.9 Hyperglycemia, unspecified; E78.5 Hyperlipidemia, unspecified; K70.0 Alcoholic fatty liver

== ENCOUNTER 2025-03-02 18:57 | Emergency (ER) | payer OTHER ==
[2025-03-02 19:40] LABS: PLATELET COUNT, AUTOMATED 275 10^3/uL (150-450)
[2025-03-02 20:02] LABS: ALT/SGPT 13 U/L (7.0-40); AST/SGOT 25 U/L (<34); CALCIUM LEVEL 9.2 MG/DL (8.5-10.1); CARBON DIOXIDE LEVEL 19 MMOL/L (20-31); CHLORIDE LEVEL 108 MMOL/L (98-107); CREATININE FOR GFR 1.16 MG/DL (0.70-1.30); GLOMERULAR FILTRATION RATE 77.2 (>60); POTASSIUM SERUM 4.0 MMOL/L (3.5-5.1); SALICYLATE LEVEL < 3.0 MG/DL (<30); SODIUM LEVEL 140 MMOL/L (136-145)
[2025-03-02 20:04] LABS: ETHYL ALCOHOL (ETHANOL) 0.252 % (0.000-0.010)
[2025-03-02] MEDS: ASPIRIN 81 MG CHEWABLE TABLET PO ONE (22:20)
[2025-03-02 23:04] LABS: CK-MB VALUE MASS 1.3 NG/ML (<3.6)
[2025-03-02 23:05] LABS: CPK CREATINE PHOSPHOKINASE 148 U/L (46-171); MB/CK RELATIVE INDEX 0.87 (< OR =4)
[2025-03-03 08:14] VITALS: BP 152/82; TEMP 97.7; O2SAT 100
== END 2025-03-03 08:15 | disposition home or self-care (01) ==
LOC: M ED 18:57
DX: F10.120 Alcohol abuse with intoxication, uncomplicated (principal); I10 Essential (primary) hypertension; J44.9 Chronic obstructive pulmonary disease, unspecified; F17.210 Nicotine dependence, cigarettes, uncomplicated; Z88.0 Allergy status to penicillin; Z79.51 Long term (current) use of inhaled steroids; Z79.899 Other long term (current) drug therapy